=== PATIENT | female | born 1970 | race African-American/Black ===

== ENCOUNTER 2017-08-22 08:06 | Outpatient (CLI) | payer BC ==
--- NOTE | 2017-08-22 11:32 | CT ---
CT ABDOMEN WITH AND WITHOUT IV CONTRAST: CT PELVIS WITH AND WITHOUT IV CONTRAST: 08/22/2017 HISTORY: Right-sided abdominal and back pain. History of kidney stones with prior lithotripsy. Microhematur ia. COMPARISON: Noncontrast CT abdomen and pelvis on 09/16/2011. FINDINGS: The lung bases are clear. Post cholecystectomy changes are again present. Again noted is mild fatty infiltration of the liver. No renal or ureteral calculi are seen bilaterally, and there is no evidence of hydronephrosis. No r enal mass is seen bilaterally. Delayed images demonstrate no obvious filling defect within the bila teral renal collecting systems or bilateral ureters. The urinary bladder is partially distended and normal in appearance. The spleen, pancreas, bilateral adrenal glands, and abdominal aorta demonstrate a normal CT appearan ce. A few scattered colonic diverticula are seen without CT evidence of diverticulitis. The uterus and adnexal structures demonstrate a grossly normal appearance for the patient's age. IMPRESSION: 1. No renal or ureteral calculi bilaterally, and there is no hydronephrosis. 2. No enhancing renal mass is seen. 3. Fatty infiltration of the liver. 4. Post cholecystectomy changes. 5. Hysterectomy. POS: [facility]
[2017-08-22] MEDS ORDERED: Iopamidol 370 76% 100 ML VIAL ONE (13:18)
== END 2017-08-22 08:07 | disposition home or self-care (01) ==
LOC: CT 08:06
PROVIDERS: ATTEND Urology
DX: R31.29 Other microscopic hematuria (principal)
CPT/HCPCS: 74178

== ENCOUNTER 2018-11-09 08:57 | Outpatient (CLI) | payer OTHER | END 2018-11-09 08:58 | disposition home or self-care (01) | LOC: BICMAMMO 08:57 | PROVIDERS: ATTEND Nurse Practitioner Family | DX: Z12.31 Encounter for screening mammogram for malignant neoplasm of breast (principal) | CPT/HCPCS: 77063; 77067 ==

== ENCOUNTER 2019-11-15 13:07 | Outpatient (CLI) | payer OTHER ==
--- NOTE | 2019-11-15 13:49 | MMO ---
Bilateral MAMMO Bilat Screen [facility]. CLINICAL HISTORY: Patient is 49 years old and is seen for screening. The patient has no family history of breast cancer. The patient has no personal history of cancer. VIEWS: The views performed were: bilateral craniocaudal; bilateral craniocaudal with tomosynthesis; bilateral mediolateral oblique; and bilateral mediolateral oblique with tomosynthesis. FILMS COMPARED: The present examination has been compared to prior imaging studies performed at 10/04/2016 and 11/09/2018. This study has been interpreted with the assistance of computer-aided detection. MAMMOGRAM FINDINGS: The breasts are almost entirely fat. There are no suspicious masses, suspicious calcifications, or new areas of architectural distortion. IMPRESSION: THERE IS NO MAMMOGRAPHIC EVIDENCE OF MALIGNANCY. A ROUTINE FOLLOW-UP MAMMOGRAM IN 1 YEAR IS RECOMMENDED. THE RESULTS OF THIS EXAM WERE SENT TO THE PATIENT. ACR BI-RADS Category 1 - Negative MAMMOGRAPHY NOTE: 1. A negative mammogram report should not delay a biopsy if a dominant of clinically suspicious mass is present. 2. Approximately 10% to 15% of breast cancers are not detected by mammography. 3. Adenosis and dense breasts may obscure an underlying neoplasm. Reported by: HUI NEW MD Electonically Signed: [id number]
== END 2019-11-15 13:08 | disposition home or self-care (01) ==
LOC: BICMAMMO 13:07
PROVIDERS: ATTEND Nurse Practitioner Family
DX: Z12.31 Encounter for screening mammogram for malignant neoplasm of breast (principal)
CPT/HCPCS: 77063; 77067

== ENCOUNTER 2020-09-25 10:13 | Outpatient (CLI) | payer OTHER ==
--- NOTE | 2020-09-25 13:27 | CT ---
CT ABDOMEN AND PELVIS PERFORMED WITHOUT CONTRAST ENHANCEMENT: Date: 09/25/2020 HISTORY: Complaining of left-sided abdomen pain x4 months. Bilateral back and pelvic pain. History of kidney s tones. COMPARISON: KUB of 08/30/2020. CT exam of 08/22/2017. FINDINGS: The lung bases are clear of infiltrates. Liver shows fatty change. The spleen and pancreas regions are unremarkable. Gallbladder has been gladys danie. Right and left adrenal glands are normal. Right and left kidneys are normal in size. A large lower po le renal calculus is seen, measuring 2.2 cm. Increased density and fullness to the left renal pelvis, and slight dilatation to the proximal left ureter, to approximately the L3 level. There is no obstru cting stone present. Some small periaortic nodes all subcentimeter in size, nonspecific. Some minimal stranding around the proximal ureter. No significant mesenteric adenopathy. CT of pelvis was performed without contrast enhancement. The appendix region is unremarkable. No bettina opathy, mass, or free fluid, Minimal diverticulosis. There are arthritic changes of the spine. IMPRESSION: 1. Large, approximately 2.2 cm lower pole left renal calculus. 2. Fullness to the left renal pelvis and slight dilatation of the proximal left ureter. Some perinep hric fat stranding is present. These changes could be the sequelae of a large calculus and a low grad e indolent infection. A transitional cell mass of the renal pelvis and proximal ureter cannot be excl uded. I would suggest CT performed with contrast to include delayed imaging for assessment and also c onsideration for retrograde pyelogram may also be beneficial. POS: [facility]
== END 2020-09-25 10:14 | disposition home or self-care (01) ==
LOC: CT 10:13
PROVIDERS: ATTEND Urology
DX: N20.0 Calculus of kidney (principal); N28.82 Megaloureter; N28.89 Other specified disorders of kidney and ureter
CPT/HCPCS: 74176; 81001; 87086

== ENCOUNTER 2020-11-22 13:51 | Outpatient (CLI) | payer BC ==
--- NOTE | 2020-11-22 14:43 | ULT ---
RENAL ULTRASOUND: 11/22/20 HISTORY: Left renal calculus. COMPARISON: CT examination of 09/25/2020 and KUB of 11/03/2020. Real time imaging of the right kidney shows the kidney to measure 10.9 cm in size. There is no cyst, mass or obstruction. On the left side, there is a normal sized kidney at 11.5 cm, slight dilatation i nvolving the lower pole calyx. Difficult to definitely appreciate any calculus. The bladder region ap pears unremarkable. Bilateral ureteral jets are seen. IMPRESSION: 1. Some minimal dilatation of the left collecting system specifically the lower pole calyx. I do not visualize any definite renal calculi. 2. Fatty change of the liver. POS: [facility]
== END 2020-11-22 13:52 | disposition home or self-care (01) ==
LOC: BICULT 13:51
PROVIDERS: ATTEND Urology
DX: N20.0 Calculus of kidney (principal); K76.0 Fatty (change of) liver, not elsewhere classified; N28.89 Other specified disorders of kidney and ureter
CPT/HCPCS: 76770

== ENCOUNTER 2020-11-24 13:03 | Outpatient (CLI) | payer BC ==
--- NOTE | 2020-11-24 14:13 | RAD ---
KUB: 11/24/2020 COMPARISON: 11/03/2020 HISTORY: Left renal stone disease FINDINGS: Cholecystectomy clips are noted in the right upper quadrant. There is a nonobstructed bowel gas pattern. There are numerous calcifications overlying the pelvis, left greater than right, stable when compared to the prior examination, presumably on the basis of vascular calcifications. The double-J ureteral stent present on the prior examination on the left has been removed. No discrete calcificati ons overlie the upper abdomen on either side. Portions of the left kidney are obscured by bowel gas however. A CT examination could best assess for residual renal stone disease. IMPRESSION: KUB as detailed above.
== END 2020-11-24 13:04 | disposition home or self-care (01) ==
LOC: BICRAD 13:03
PROVIDERS: ATTEND Urology
DX: N20.0 Calculus of kidney (principal)
CPT/HCPCS: 74018

== ENCOUNTER 2021-04-10 08:24 | Outpatient (CLI) | payer BC | END 2021-04-10 08:25 | disposition home or self-care (01) | LOC: BICMAMMO 08:24 | PROVIDERS: ATTEND Nurse Practitioner Family | DX: Z12.31 Encounter for screening mammogram for malignant neoplasm of breast (principal) | CPT/HCPCS: 77063; 77067 ==

== ENCOUNTER 2021-06-26 16:30 | Outpatient (CLI) | payer BC | END 2021-06-26 16:31 | disposition home or self-care (01) | LOC: BICRAD 16:30 | PROVIDERS: ATTEND Urology | DX: R13.10 Dysphagia, unspecified (principal) | CPT/HCPCS: 74018 ==

== ENCOUNTER 2023-11-27 08:02 | Outpatient (CLI) | payer BC | END 2023-11-27 08:03 | disposition home or self-care (01) | LOC: BICMAMMO 08:02 | PROVIDERS: ATTEND Nurse Practitioner Family | DX: Z12.31 Encounter for screening mammogram for malignant neoplasm of breast (principal) | CPT/HCPCS: 77063; 77067 ==